=== PATIENT | male | born 2000 | race Two or more races ===

== ENCOUNTER 2025-01-21 17:14 | Emergency (ER) | payer MEDICAID, OTHER ==
[~2025-01-21] VITALS: Ht 182.9 cm; Wt 66.3 kg
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
[2025-01-21] MEDS: HYDROcodone-ACET 5/325MG TAB PO ONE (18:54)
[2025-01-21 18:55] VITALS: BP 149/96; PULSE 69; RESP 16; TEMP 98.3; O2SAT 100
--- NOTE | 2025-01-21 19:06 | DVH ---
CLINICAL INDICATION: left wrist pain with deformity TECHNIQUE: XYXY L WRIST 3+ VIEW XRAY Comparison: None FINDINGS/IMPRESSION: : Comminuted distal radial metaphyseal fracture with 1/4 shafts width dorsal displacement of the distal fragment and significant dorsal angulation of the distal radial articular surface. 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
[2025-01-21] MEDS ORDERED: IBUP-1456 PO (19:56)
[2025-01-21] MEDS ORDERED: ACE3T PO (19:56)
--- NOTE | 2025-01-21 20:06 | DVH ---
CLINICAL INDICATION: s/p reduction TECHNIQUE: 3 radiographic views of the left wrist were obtained. Comparison: XY L WRIST 3+ VIEW XRAY on DOS: 01/21/25 FINDINGS/IMPRESSION: Minimally displaced fracture of the styloid process of the ulna is noted with mildly displaced comminuted intra-articular fracture distal radius.
== END 2025-01-21 20:20 | disposition home or self-care (01) ==
LOC: ER 17:14
DX: S52.502A Unspecified fracture of the lower end of left radius, initial encounter for closed fracture (principal); X58.XXXA Exposure to other specified factors, initial encounter; Y93.89 Activity, other specified; Y92.89 Other specified places as the place of occurrence of the external cause; Y99.8 Other external cause status
CPT/HCPCS: 25605; 73110